=== PATIENT | male | born 1990 | race Hispanic/Latino ===

== ENCOUNTER 2025-04-14 18:37 | Emergency (ER) | payer SELFPAY ==
[2025-04-14 18:45] VITALS: BP 124/80; PULSE 112; RESP 16; TEMP 37.6; O2SAT 99
--- NOTE | 2025-04-14 18:51 | ED.GENADULT ---
HPI - General Adult General Chief complaint: Skin/Abscess/Foreign Body Stated complaint: Bump On Back Of Head Source: patient Mode of arrival: ambulatory Limitations: no limitations History of Present Illness HPI narrative: Pt is a 34 y/o male presenting with c/o bump on the back of his head. Area was noted 4 days ago, reports cutting his own hair with clippers 1 week ago. 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 No additional complaints. Related Data Allergies Allergy/AdvReac Type Severity Reaction Status Date / Time No Known Allergies Allergy Verified 04/14/25 18:47 Review of Systems Review of Systems: CONSTITUTIONAL: Denies body aches, fever, chills, or sweats. EYES: Denies visual changes, redness, or discharge. ENT: Denies rhinorrhea, congestion, sore throat, or otalgia. CARDIOVASCULAR: Denies chest pain, palpitations, or edema. RESPIRATORY: Denies cough or dyspnea. GASTROINTESTINAL: Denies abdominal pain, nausea, vomiting, or diarrhea. GENITOURINARY: Denies dysuria or hematuria. SKIN: Denies itching MUSCULOSKELETAL: Denies back pain, joint pain, or myalgia. NEUROLOGIC: Denies headache, numbness, tingling, or weakness. PSYCH: Denies depression or anxiety. Exam Narrative: GENERAL: Well-appearing, well-nourished, and in no acute distress. HEAD: Normocephalic, atraumatic. EYES: EOMI. No redness or drainage. Conjunctivae normal. ENT: Mucous membranes pink and moist. NECK: Normal AROM. Supple. CHEST: No respiratory distress. HEART: Normal rate Normal peripheral pulses. MUSCULOSKELETAL: No bony tenderness. EXTREMITIES: Normal range of motion. No edema. SKIN: Several follicularly based pustules clustered around a central nodule (nonfluctuant) without drainage, lymphatic streaking noted to posterior aspect of scalp, immediately superior to hairline. Capillary refill normal. Normal skin turgor. NEURO: No focal deficits. Alert and oriented x3. Gait steady. PSYCH: Normal affect. No signs of depression or anxiety. Course Course Level of Care: Express Care Visit Vital Signs Vital signs: Vital Signs Temperature 99.6 F 04/14/25 18:45 Pulse Rate 112 H 04/14/25 18:45 Respiratory Rate 16 04/14/25 18:45 Blood Pressure 124/80 04/14/25 18:45 Pulse Oximetry 99 04/14/25 18:45 Oxygen Delivery Room Air 04/14/25 18:45 Temperature 99.0 F 04/14/25 19:01 Pulse Rate 117 H 04/14/25 19:01 Respiratory Rate 16 04/14/25 18:45 Blood Pressure 124/80 04/14/25 18:45 Pulse Oximetry 96 04/14/25 19:01 Oxygen Delivery Room Air 04/14/25 19:01 Medical Decision Making Vital Signs Vital Signs: Vital Signs Temperature 99.6 F 04/14/25 18:45 Pulse Rate 112 H 04/14/25 18:45 Respiratory Rate 16 04/14/25 18:45 Blood Pressure 124/80 04/14/25 18:45 Pulse Oximetry 99 04/14/25 18:45 Oxygen Delivery Room Air 04/14/25 18:45 Temperature 99.0 F 04/14/25 19:01 Pulse Rate 117 H 04/14/25 19:01 Respiratory Rate 16 04/14/25 18:45 Blood Pressure 124/80 04/14/25 18:45 Pulse Oximetry 96 04/14/25 19:01 Oxygen Delivery Room Air 04/14/25 19:01 Discharge Plan Discharge Clinical Impression: Folliculitis barbae Patient Disposition: Home Condition: Stable Instructions: Antibiotic Form, Folliculitis (ED) Additional Instructions: Go straight to ER should your symptoms become worse or should any new symptoms develop Patient Language: Bulgarian Prescriptions: New sulfamethoxazole-trimethoprim [Bactrim DS] 800-160 mg tablet 1 tablet PO Q12H Qty: 14 0RF Follow-up/Referrals: PHYSICIAN,COLD ROLLING SUPERVISOR [Primary Care Provider] - Time of Disposition: 18:55
[2025-04-14 19:01] VITALS: PULSE 117; TEMP 37.2; O2SAT 96
== END 2025-04-14 19:01 | disposition home or self-care (01) ==
PROVIDERS: Emergency Provider Registered Nurse
DX: L73.9 Follicular disorder, unspecified (principal)
CPT/HCPCS: 99203; G0463